=== PATIENT | male | born 1960 | race Caucasian/White ===

== ENCOUNTER 2017-01-11 07:23 | Day surgery (SDC) | payer OTHER ==
[2017-01-11] MEDS ORDERED: LACTATED RINGERS 1,000 ML IV ONE (07:35)
[2017-01-11] MEDS ORDERED: MIDAZOLAM 2 MG/2 ML VIAL IVP ONE (08:21)
[2017-01-11] MEDS ORDERED: fentaNYL 250 MCG/5 ML VIAL IVP ONE (08:21)
== END 2017-01-11 07:24 | disposition home or self-care (01) ==
PROC: 0DBL8ZX Excision of Transverse Colon, Via Natural or Artificial Opening Endoscopic, Diagnostic (ICD-10-PCS; principal; 2017-01-11 08:30)
DX: Z12.11 Encounter for screening for malignant neoplasm of colon (principal); D12.3 Benign neoplasm of transverse colon; K64.8 Other hemorrhoids
CPT/HCPCS: 45380; J3010; J7120

== ENCOUNTER 2020-08-10 09:34 | Day surgery (SDC) | payer OTHER ==
[2020-08-10] MEDS ORDERED: LACTATED RINGERS 1,000 ML IV ONE ×2 (10:33→11:38)
[2020-08-10] MEDS ORDERED: fentaNYL 250 MCG/5 ML VIAL IVP ONE (11:05)
[2020-08-10] MEDS ORDERED: MIDAZOLAM 2 MG/2 ML VIAL IVP ONE (11:05)
[2020-08-10 12:07] VITALS: BP 115/79
== END 2020-08-10 09:35 | disposition home or self-care (01) ==
LOC: SDS 09:34
PROVIDERS: ATTEND Internal Medicine Gastroenterology
PROC: 0DBN8ZZ Excision of Sigmoid Colon, Via Natural or Artificial Opening Endoscopic (ICD-10-PCS; 2020-08-10)
PROC: 0DBP8ZZ Excision of Rectum, Via Natural or Artificial Opening Endoscopic (ICD-10-PCS; principal; 2020-08-10 10:45)
DX: Z12.11 Encounter for screening for malignant neoplasm of colon (principal); K63.5 Polyp of colon; K62.1 Rectal polyp; N40.0 Benign prostatic hyperplasia without lower urinary tract symptoms; E66.9 Obesity, unspecified
CPT/HCPCS: 45380; J3010; J7120

== ENCOUNTER 2020-08-31 13:15 | Outpatient (CLI) | payer OTHER ==
--- NOTE | 2020-08-31 16:26 | XRAY Report ---
PROCEDURE: Cervical Spine 2 View INDICATIONS: ARTHRALGIA TECHNIQUE: 2 view(s) of the cervical spine were acquired. COMPARISON: None. FINDINGS: Bones: No fractures or dislocations to the C7-T1 level. The lateral masses of C1 appear intact on t he odontoid view. No suspicious bony lesions. Minimal degenerative disc space narrowing is present most notable at C5-6 and C6-7. Mild multilevel u ncovertebral hypertrophy is present. Soft tissues: No prevertebral soft tissue swelling. IMPRESSION: Degenerative changes most notable at C5-6 and C6-7 as above. Reviewed by: Nalini Duong MD on 08/31/2020 4:24 PM PST Approved by: Nalini Duong MD on 08/31/2020 4:24 PM PST Station ID: [id number]
== END 2020-08-31 13:16 | disposition home or self-care (01) ==
LOC: DI 13:15
PROVIDERS: ATTEND Internal Medicine
DX: M50.322 Other cervical disc degeneration at C5-C6 level (principal)
CPT/HCPCS: 72040